=== PATIENT | male | born 1980 | race African-American/Black ===

== ENCOUNTER 2016-11-29 09:58 | Emergency (ER) | payer SELFPAY ==
[2016-11-29 10:19] VITALS: BP 110/78
--- NOTE | 2016-11-29 11:17 | UC ---
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 HAS BEEN ON 20MG OXYCODONE 6 TIMES DAILY FOR OVER A YEAR. WAS SEEING DR. ESCALANTE AT [facility]. HIS CARE WAS TRANSFERRED TO MAREK SANDERS AND TAPER DOWN WAS ATTEMPTED. PT WAS REPORTEDLY AGGRESSIVE AND THREATENING TO STAFF AND SO WAS DISMISSED FROM THEIR OFFICE. HE IS HERE SEEKING MEDS AND A NEW PCP. HE STATES HE HAS ENOUGH MEDS FOR TODAY ONLY. HE HAS NOT TRIED TO GET A NEW PCP BEFORE TODAY. . - History of Current Complaint Chief Complaint: UCMedRefill Stated Complaint: MEDICATIONS MANAGEMENT ASSISTANCE Time Seen by Provider: 11/29/16 11:02 Hx Obtained From: Patient Onset/Duration: Still Present Timing: Constant Onset Severity: Moderate Current Severity: Moderate Pain Intensity: 7 Associated Signs & Symptoms: Positive: Recent Medication Changes - DECREASE IN OXYCODONE DOSE. Negative: Confusion, Diarrhea, Nausea, Vomiting - Allergy/Home Medications Allergies/Adverse Reactions: Allergies Allergy/AdvReac Type Severity Reaction Status Date / Time Fluticasone [From Flonase] Allergy Unknown Verified 12/27/15 13:44 Reaction Details Iodinated Diagnostic Agents Allergy Hives Verified 12/27/15 13:44 Iodine Allergy Unknown Verified 12/27/15 13:44 Reaction Details Ketorolac Tromethamine Allergy Swelling Verified 12/27/15 14:35 [From Toradol] Tramadol Allergy Swelling Verified 12/27/15 14:35 Triamcinolone [From Nasacort] Allergy Unknown Verified 12/27/15 13:44 Reaction Details Bee Stings Allergy Anaphylatic Uncoded 11/29/16 10:24 Shock Home Medications: Home Medications Epi Pen 11/29/16 [History] Ondansetron [Ondansetron Odt] 1 tab PO 11/29/16 [History] Promethazine TAB* [Phenergan Tab*] 1 tab PO PRN 11/29/16 [History] PMH/Surg Hx/FS Hx/Imm Hx - Additional Past Medical History Additional PMH: LYME DISEASE - Surgical History Surgical History: None - Family History Known Family History: Negative: Blood Disorder - Social History Alcohol Use: None Alcohol Amount: pt stated "one bottle of wine per week Substance Use Type: Marijuana Smoking Status (MU): Light Every Day Tobacco Smoker Type: Cigarettes Amount Used/How Often: 3-5 cigs per day Have You Smoked in the Last Year: Yes Household Exposure Type: Cigarettes - Immunization History Most Recent Influenza Vaccination: NONE Most Recent Tetanus Shot: unk Most Recent Pneumonia Vaccination: NONE Review of Systems Constitutional: Other - STATES "PAIN EVERYWHERE" Cardiovascular: Negative Gastrointestinal: Negative Genitourinary: Negative All Other Systems Reviewed And Are Negative: Yes Physical Exam Triage Information Reviewed: Yes Appearance: Well-Appearing, No Pain Distress, Well-Nourished Vital Signs: Initial Vital Signs Temp 99.1 F 11/29/16 10:07 Pulse 102 11/29/16 10:07 Resp 18 11/29/16 10:07 BP 110/78 11/29/16 10:07 Pulse Ox 100 11/29/16 10:07 Vital Signs Reviewed: Yes Eyes: Positive: Conjunctiva Clear ENT: Positive: Hearing grossly normal Neck: Positive: Supple Respiratory: Positive: No respiratory distress, No accessory muscle use Cardiovascular: Positive: Pulses Normal Musculoskeletal: Positive: No Edema Neurological: Positive: Alert Psychological: Positive: Age Appropriate Behavior Skin: Negative: rashes Course/Dx - Course Course Of Treatment: OFFERED CONTACT FOR JEMIMA AVILA TO HELP ESTABLISH WITH A NEW PCP AND REFERRAL TO PAIN MANAGEMENT. PT STATES HE DOESN'T WANT PAIN MANAGEMENT. STATES HE WILL NOT MAKE ANY PHONE CALLS TO TRY AND GET A NEW DOCTOR TODAY BECAUSE HE IS TOO TIRED TO BE ON THE PHONE. CALLED [facility] AND SPOKE WITH MAREK SANDERS. SHE CONFIRMS THAT PT HAS BEEN DISMISSED FROM THEIR OFFICE FOR BEING THREATENING AND VERBALLY AGGRESSIVE. I ASKED IF THERE WAS A WAY TO COORDINATE A PLAN FOR HIM. SHE DID NOT FEEL COMFORTABLE REACHING OUT TO HIM. I WAS ON THE CALL, THE PT WALKED OUT STATING HE HAD A BUS TO CATCH. I ADVISED HIM I WAS ATTEMPTING TO ORGANIZE A PLAN FOR HIM INCLUDING FINDING A NEW PCP AND REFERRING TO PAIN MANAGEMENT BUT HE DECLINED TO STAY. I WILL STILL SEND THE PAIN MANAGEMENT REFERRAL. - Differential Dx - Multi-Symptom Provider Diagnoses: CHRONIC PAIN, OUT OF OPIOID MEDICATION Discharge - Discharge Plan Condition: Stable Disposition: HOME Patient Education Materials: Chronic Pain (ED) Referrals: Khalif PIERRE,Antonio Morgan [Primary Care Provider] - Additional Instructions: CALL THE NUMBER BELOW FOR ASSISTANCE IN ESTABLISHING WITH A PCP An additional resource available to assist in finding the appropriate physician for your health care needs is the [facility] ([facility]). You may contact them by calling [phone]. PAIN CLINIC REFERRAL SUBMITTED FOR YOU TODAY. THEY WILL BE CONTACTING YOU ABOUT AN APPOINTMENT. GO TO THE ER WITHOUT FAIL IF YOU DEVELOP WITHDRAWAL SYMPTOMS: - ABDOMINAL CRAMPING - NAUSEA/VOMITING - DIARRHEA - WORSENING MUSCLE/JOINT PAINS
== END 2016-11-29 11:31 | disposition home or self-care (01) ==
LOC: UCEAST 09:58
DX: G89.29 Other chronic pain (principal); F17.210 Nicotine dependence, cigarettes, uncomplicated
CPT/HCPCS: 99212; G0463